=== PATIENT | female | born 1940 | race Caucasian/White ===

== ENCOUNTER → 2016-07-01 | Outpatient (CLI) | payer OTHER | END | disposition home or self-care (01) | LOC: CFH 08:14 | PROVIDERS: ATTEND Internal Medicine | DX: C39.9 Malignant neoplasm of lower respiratory tract, part unspecified (principal); C50.919 Malignant neoplasm of unspecified site of unspecified female breast; R07.9 Chest pain, unspecified; J98.11 Atelectasis | CPT/HCPCS: 71250 ==

== ENCOUNTER → 2016-07-30 | Outpatient (CLI) | payer OTHER | END | disposition home or self-care (01) | LOC: CFH 10:00 | PROVIDERS: ATTEND Radiology Radiation Oncology | DX: Z12.31 Encounter for screening mammogram for malignant neoplasm of breast (principal); C50.211 Malignant neoplasm of upper-inner quadrant of right female breast | CPT/HCPCS: 76377; 76642; G0202 ==

== ENCOUNTER → 2017-02-03 | Outpatient (CLI) | payer OTHER | END | disposition home or self-care (01) | LOC: CFH 14:34 | PROVIDERS: ATTEND Internal Medicine | DX: M41.86 Other forms of scoliosis, lumbar region (principal); M47.896 Other spondylosis, lumbar region | CPT/HCPCS: 72110 ==

== ENCOUNTER → 2017-03-30 | Outpatient (CLI) | payer OTHER | LOC: CFH 06:49 | PROVIDERS: ATTEND Physician Assistant | DX: M51.25 Other intervertebral disc displacement, thoracolumbar region (principal); M51.26 Other intervertebral disc displacement, lumbar region; M48.061 Spinal stenosis, lumbar region without neurogenic claudication; M47.896 Other spondylosis, lumbar region; M47.897 Other spondylosis, lumbosacral region; M47.895 Other spondylosis, thoracolumbar region | CPT/HCPCS: 72148 ==

== ENCOUNTER 2018-10-06 13:06 | Outpatient (CLI) | payer MEDICARE | END 2018-10-06 23:59 | disposition home or self-care (01) | LOC: CFH 13:06 | PROVIDERS: ATTEND Internal Medicine | DX: R92.0 Mammographic microcalcification found on diagnostic imaging of breast (principal); Z90.12 Acquired absence of left breast and nipple | CPT/HCPCS: 77065 ==